=== PATIENT | female | born 1980 | race Two or more races ===

== ENCOUNTER 2023-05-30 18:00 | Emergency (ER) | payer OTHER ==
[~2023-05-30] VITALS: Ht 165.1 cm; Wt 72.1 kg
[2023-05-30 18:25] VITALS: BP 121/68; PULSE 75; RESP 18; O2SAT 98
[2023-05-30] MEDS ORDERED: KETOROLAC TROMETH 60MG/2ML VIAL IM ONE (22:15)
[2023-05-30] MEDS ORDERED: CYCL-837 PO (22:47)
[2023-05-30] MEDS ORDERED: IBUP-1456 PO (22:47)
== END 2023-05-30 23:39 | disposition home or self-care (01) ==
LOC: ER 18:00
DX: S30.0XXA Contusion of lower back and pelvis, initial encounter (principal); Z98.890 Other specified postprocedural states; Z79.899 Other long term (current) drug therapy; W07.XXXA Fall from chair, initial encounter; Y93.89 Activity, other specified; Y92.89 Other specified places as the place of occurrence of the external cause; Y99.8 Other external cause status
CPT/HCPCS: 72220; J1885

== ENCOUNTER 2023-08-16 12:19 | Emergency (ER) | payer OTHER ==
[~2023-08-16] VITALS: Ht 167.6 cm; Wt 71.9 kg
[~2023-08-16 12:19] MED LIST: CYCL-837 PO; DICY10CA PO; IBUP-1456 PO; NITR-87 PO; OMEP-335 PO; ZOFR4T PO
[2023-08-16] MEDS: IOHEXOL 300 MG/ML 100ML BOTTLE IJ ONE (13:53)
[2023-08-16 14:12] LABS: Urine Bacteria FEW /hpf (None Seen); Urine Blood Negative /uL (Negative); Urine Clarity HAZY (Clear); Urine Color Yellow (Yellow); Urine Mucus FEW (None Seen); Urine Protein, UAD TRACE (Negative); Urine Specific Gravity 1.025 (1.001-1.035); Urine Urobilinogen Normal (Negative); Urine WBC 8 /hpf (0 - 5)
[2023-08-16] MEDS ORDERED: HYDR-4902 PO (15:04)
[2023-08-16 17:15] VITALS: BP 154/82; PULSE 76; RESP 19; O2SAT 97
[2023-08-16] MEDS: HYDROcodone-ACET 10/325MG TAB PO ONE (17:15)
== END 2023-08-16 17:20 | disposition home or self-care (01) ==
LOC: ER 12:19
DX: R10.2 Pelvic and perineal pain (principal); Z85.41 Personal history of malignant neoplasm of cervix uteri; Z90.710 Acquired absence of both cervix and uterus; Z79.899 Other long term (current) drug therapy
CPT/HCPCS: 74177; 81001; 99285; Q9967

== ENCOUNTER 2023-08-31 09:40 | Emergency (ER) | payer OTHER ==
[~2023-08-31] VITALS: Ht 167.6 cm; Wt 70.0 kg
[~2023-08-31 09:40] MED LIST changes: +HYDR-4902 PO
[2023-08-31] MEDS: ASPirin 81 mg TAB PO ONE (10:11)
[2023-08-31 10:29] LABS: Basophils # (auto) 0 10 ^3/uL (0-0.2); Basophils % (auto) 0.2 % (0.0-2.0); Eosinophils # (auto) 0.1 10 ^3/uL (0-0.8); Eosinophils % (auto) 1.1 % (0.0-7.0); Hematocrit 43.6 % (36.0-46.0); Hemoglobin 14.7 g/dL (12.2-16.2); Lymphocytes # (auto) 2.2 10 ^3/uL (0.4-5.4); Lymphocytes % (auto) 37.2 % (10.0-50.0); Mean Corpuscular Hemoglobin 28.7 pg (28.0-32.0); Mean Corpuscular Hgb Conc. 33.8 g/dL (32.0-36.0); Monocytes # (auto) 0.5 10 ^3/uL (0-1.3); Monocytes % (auto) 7.9 % (0.0-12.0); Neutrophils # (auto) 3.2 10 ^3/uL (1.6-8.6); Neutrophils % (auto) 53.6 % (37.0-80.0); Nucleated Red Blood Cells % 0.2 %; Red Blood Cells 5.13 10^6/uL (4.0-5.20); Red Cell Distribution Width 13.5 % (11.8-14.3)
[2023-08-31 10:40] LABS: Alanine Aminotransferase 23 U/L (7-40); Albumin 4.7 g/dL (3.2-4.8); Alkaline Phosphatase 53 U/L (46-116); Anion Gap 7 (5-15); Aspartate Aminotransferase 13 U/L (13-40); BUN/Creatinine Ratio 22.2 (10.0-20.0); Blood Urea Nitrogen 14 mg/dL (9-23); Calcium 9.9 mg/dL (8.5-10.1); Carbon Dioxide 27 mmol/L (20-30); Chloride 104 mmol/L (98-107); Glucose 86 mg/dL (74-106); Potassium 3.5 mmol/L (3.5-5.1); Sodium 138 mmol/L (136-145)
[2023-08-31 10:41] LABS: Bilirubin, Total 0.5 mg/dL (0.2-1.0); Total Protein 6.9 g/dL (5.7-8.2)
[2023-08-31 12:02] VITALS: BP 143/89; PULSE 73; RESP 18; O2SAT 98
== END 2023-08-31 12:04 | disposition home or self-care (01) ==
LOC: ER 09:40
DX: R07.89 Other chest pain (principal); Z85.9 Personal history of malignant neoplasm, unspecified; Z90.710 Acquired absence of both cervix and uterus; Z87.891 Personal history of nicotine dependence; Z79.899 Other long term (current) drug therapy
CPT/HCPCS: 36415; 71045; 80053; 84484; 85025; 85379; 93005

== ENCOUNTER 2025-05-07 12:15 | Inpatient (IN) | payer SELFPAY ==
[~2025-05-07] VITALS: Ht 167.6 cm; Wt 70.0 kg
[2025-05-07 12:36] VITALS: PULSE 110; RESP 30; O2SAT 97
[2025-05-07] MEDS: SODIUM CHLORIDE 0.9% 1,000 ML IV ONE ×2 (13:08→14:15)
--- NOTE | 2025-05-07 13:16 | ED.PDOC ---
History of Present Illness HPI Comments 44-year-old female presents to the ER with prior medical history of cancer: Surgical history of hysterectomy and a chief complaint of shortness a breath. Patient reports on having had shortness a breath in the past two days and going to urgent care yesterday for which was diagnosed with bad pneumonia and told to come to the ER for antibiotics but went home instead. Patient currently does have a blood pressure of 209/114, satting at 97% room air with a respiratory rate of 40. Denies any other symptoms at this time. Denies chills, fever, N/V/D, CP. No other associated symptoms, modifiers, recent injuries or sick contacts present at this time. Chief Complaint: Shortness of Breath Time Seen by MD: 12:30 Primary Care Provider: UNKNOWN Reviewed Notes: Nurses Notes, Medications, Allergies Allergies: Coded Allergies: NO KNOWN ALLERGIES (Unverified , 05/30/23) Home Meds Active Scripts Hydrocodone-Acetaminophen (Hydrocodone Bitartrate/AC 5-325 mg) 1 Tab Tab, 1 TAB PO Q8HP PRN for 5 Days, #15 TAB Prov:GIO HERCULES MD 08/16/23 Ondansetron Odt 4MG Tab (ZOFRAN PO) 4 Mg Tb, 4 MG PO Q6HP PRN, #20 TAB ODT TAB-DISSOLVE IN MOUTH, THEN SWALLOW Prov:CECIL CASTELAN PAC 08/07/23 Dicyclomine Hcl (BENTYL CAPSULE) 10 Mg Cp, 1 CAP PO Q6HPRN, #30 CAP 0 Refills Prov:CECIL CASTELAN PAC 08/07/23 Nitrofurantoin Monohydrate Mac (Macrobid) 100 Mg Cap, 100 MG PO BID for 5 Days, #10 CAP Prov:CECIL CASTELAN PAC 08/07/23 Omeprazole (Omeprazole) 20 Mg Tab, 20 MG PO DAILY for 14 Days, #14 TAB Prov:CECIL CASTELAN PAC 08/07/23 Cyclobenzaprine Hcl (Cyclobenzaprine Hcl) 5 Mg Tab, 1 TAB PO QPM PRN, #14 TAB 0 Refills Prov:SALAS HAN 05/30/23 Ibuprofen (Ibuprofen) 800 Mg Tab, 1 TAB PO TID PRN, #30 TAB 0 Refills Prov:SALAS HAN 1/15/24 Information Source: Patient Mode of Arrival: Ambulatory Severity: Moderate Timing: Hours Duration: Since onset, Hours Prehospital treatment: None Past Medical History PAST MEDICAL HISTORY: Cancer Surgical History: Hysterectomy VISION THERAPIST History: No Pertinent VISION THERAPIST History Family History Family History: Reviewed,noncontributory to illness, Unknown Social History Smoker: Other Alcohol: Denies ETOH Use Drugs: Denies Drug Use Lives In: Home Constitutional: denies: chills, diaphoresis, fatigue, fever, malaise, sweats, weakness, others EENTM: denies: blurred vision, double vision, ear bleeding, ear discharge, ear drainage, ear pain, ear ringing, eye pain, eye redness, hearing loss, mouth pain, mouth swelling, nasal discharge, nose bleeding, nose congestion, nose pain, photophobia, tearing, throat pain, throat swelling, voice changes, others Respiratory: reports: shortness of breath; denies: cough, hemoptysis, orthopnea, SOB at rest, SOB with excertion, stridor, wheezing, others Cardiovascular: denies: chest pain, dizzy spells, diaphoresis, Dyspnea on exertion, edema, irregular heart beat, left arm pain, lightheadedness, palpitations, PND, syncope, others Gastrointestinal: denies: abdomen distended, abdominal pain, blood streaked bowels, constipated, diarrhea, dysphagia, difficulty swallowing, hematemesis, melena, nausea, poor appetite, poor fluid intake, rectal bleeding, rectal pain, vomiting, others Genitourinary: denies: abnormal vagina bleeding, burning, dyspareunia, dysuria, flank pain, frequency, hematuria, incontinence, pain, , vagina discharge, urgency, others Neurological: denies: dizziness, fainting, headache, left sided numbness, left sided weakness, numbness, paresthesia, pre-existing deficit, right sided numbne ss, right sided weakness, seizure, speech problems, tingling, tremors, weakness, others Musculoskeletal: denies: back pain, gout, joint pain, joint swelling, muscle pain, muscle stiffness, neck pain, others Integumetry: denies: bruises, change in color, change in hair/nails, dryness, laceration, lesions, lumps, rash, wounds, others Allergic/Immunocompromised: denies: Difficulty Healing, Frequent Infections, Hives, Itching, others Hematologic/Lymphatic: denies: anemia, blood clots, easy bleeding, easy bruising, swollen glands, others Endocrine: denies: excessive hunger, excessive sweating, excessive thirst, excessive urination, flushing, intolerance to cold, intolerance to heat, unexplained weight gain, unexplained weight loss, others Psychiatric: denies: anxiety, bipolar disorder, depression, hopeless, panic disorder, schizophrenia, sleepless, suicidal, others All Other Systems: Reviewed and Negative Physical Exam General Appearance: Moderate Distress, Normal HEENT: Normal ENT Inspection, Pharynx Normal, TMs Normal Neck: Full Range of Motion, Non-Tender, Normal, Normal Inspection Respiratory: Accessory Muscle Use, Chest Non-Tender, Respiratory Distress, Wheezing Cardiovascular: No Edema, No JVD, No Murmur, No Gallop, Normal Peripheral Pulse s, Tachycardia Breast Exam: Deferred Gastrointestinal: No Organomegaly, Non Tender, No Pulsatile Mass, Normal Bowel Sounds, Soft Genitalia: Deferred Pelvic: Deferred Rectal: Deferred Extremities: No calf tenderness, Normal capillary refill, Normal inspection, Normal range of motion, Non-tender, No pedal edema Musculoskeletal : Apperance: Normal Neurologic: Alert, gas appliance adjuster II-XII nml as Tested, No Motor Deficits, Normal Affect, Normal Mood, No Sensory Deficits Cerebellar Function: NOT DONE Reflexes: NOT DONE Skin: Dry, Normal Color, Warm Peripheral Pulses: 3+ Radial (R), 3+ Radial (L) Lymphatic: No Adenopathy Was a procedure done? Was a procedure done?: No Differential Dx Considerations may include: Anemia Electrolyte imbalance X-Ray, Labs, Meds, VS Vital Signs Date Time Temp Pulse Resp B/P (MAP) Pulse Ox O2 Delivery O2 Flow Rate FiO2 05/07/25 14:59 90 24 164/90 (114) 99 05/07/25 14:27 95 Simple Mask* 10 99 05/07/25 14:22 98.6 105 22 168/79 (108) 95 98.6 05/07/25 13:52 108 28 186/78 (114) 98 05/07/25 13:50 97.6 110 30 209/114 (145) 97 97.6 05/07/25 12:36 110 30 97 Room Air* 0 21 05/07/25 12:20 98.7 117 36 174/105 95 98.7 Lab Test 05/07/25 15:12 05/07/25 14:02 05/07/25 13:00 05/07/25 12:15 Range/Units Lactic Acid Level Pending 2.8 *H 0.4-2.0 mmol/L Lactate Dehydrogenase Pending Sodium Level 139 136-145 mmol/L Potassium Level 3.6 3.5-5.1 mmol/L Chloride Level 106 98-107 mmol/L Carbon Dioxide Level 26 20-31 mmol/L Anion Gap 7 5-15 Blood Urea Nitrogen 6 L 9-23 mg/dL Creatinine 0.58 0.550-1.02 mg/dL Glomerular Filtration Rate Calc 116 >90 mL/min BUN/Creatinine Ratio 10.3 10.0-20.0 Serum Glucose 103 74-106 mg/dL Calcium Level 8.3 L 8.7-10.4 mg/dL White Blood Count 9.3 4.4-10.8 10^3/uL Red Blood Count 4.80 4.0-5.20 10^6/uL Hemoglobin 15.0 12.2-16.2 g/dL Hematocrit 42.6 36.0-46.0 % Mean Corpuscular Volume 88.7 80.0-100.0 fL Mean Corpuscular Hemoglobin 31.3 28.0-32.0 pg Mean Corpuscular Hemoglobin Concent 35.3 32.0-36.0 g/dL Red Cell Distribution Width 12.5 11.8-14.3 % Platelet Count 257 140-450 10^3/uL Mean Platelet Volume 7.8 6.9-10.8 fL Neutrophils (%) (Auto) 81.8 H 37.0-80.0 % Lymphocytes (%) (Auto) 9.6 L 10.0-50.0 % Monocytes (%) (Auto) 7.8 0.0-12.0 % Eosinophils (%) (Auto) 0.7 0.0-7.0 % Basophils (%) (Auto) 0.1 0.0-2.0 % Neutrophils # (Auto) 7.6 1.6-8.6 10 ^3/uL Lymphocytes # (Auto) 0.9 0.4-5.4 10 ^3/uL Monocytes # (Auto) 0.7 0-1.3 10 ^3/uL Eosinophils # (Auto) 0.1 0-0.8 10 ^3/uL Basophils # (Auto) 0 0-0.2 10 ^3/uL Nucleated Red Blood Cells 0.0 % Urine Color Yellow Yellow Urine Clarity Clear Clear Urine pH 6.5 5.0-9.0 Urine Specific [place] 1.028 1.001-1.035 Urine Protein 1+ H Negative Urine Ketones Trace Negative Urine Blood Trace H Negative /uL Urine Nitrite Negative Negative Urine Bilirubin Negative Negative Urine Urobilinogen 3 H Negative mg/dL Urine Leukocyte Esterase 2+ Negative /uL Urine RBC 6 0 - 4 /hpf Urine Microscopic WBC 3 0-5 /HPF Urine Squamous Epithelial Cells Mod <5 /hpf Urine Bacteria Few H None Seen /hpf Urine Mucus Few None Seen Urine Glucose Normal Normal mg/dL Current Medications Medications (Trade) Dose Ordered Sig/Norris Route Start Time Stop Time Status Last Admin Sodium Chloride 1,000 ml @ 1,000 mls/hr Q1H ONCE IV 05/07/25 13:00 05/07/25 13:59 DC 05/07/25 13:08 Sodium Chloride 1,000 ml @ 150 mls/hr Q6H40M ONCE IV 05/07/25 13:00 05/07/25 19:39 05/07/25 14:15 Ceftriaxone Sodium 50 ml @ 100 mls/hr ONCE ONCE IV 05/07/25 13:30 05/07/25 13:59 DC 05/07/25 13:36 Azithromycin 250 ml @ 125 mls/hr ONCE ONCE IV 05/07/25 13:30 05/07/25 15:29 05/07/25 13:57 Patient alert. Complaining of shortness a breath. Placed on oxygen. Answering questions. Was given breathing treatment. Was given steroid. Was given Rocephin. Was given azithromycin. Shows UTI. Explained to the patient. Continue monitoring. Time of 1ST Reevaluation: 12:58 Reevaluation 1ST: Unchanged Patient Education/Counseling: Diagnosis, Treatment, Prognosis Family Education/Counseling: No Family Present SEPSIS Sepsis Screen Date sepsis recognized/suspect: May 07, 2025 Time Sepsis recognized/suspect: 1220 Recent Procedure: No On Antibiotic Therapy: No Respiratory Rate >20: No Heart Rate >90: No Temp<36 C (96.8 F) or >38.3 C: No SBP <90 or MAP <65 mmHG: No New Acute Mental Status Change: No Is the patient on CPAP, BIPAP,: No Physician Orders Chest Portable (05/07/25 12:54) Sodium Chloride 0.9% (05/07/25 13:00) Corporate Communications Specialist (05/07/25 13:04) Pulse Oximetry (05/07/25 13:04) Blood Culture (05/07/25 13:04) Urine (05/07/25 13:04) Heplock Iv (05/07/25 13:04) Oxygen (05/07/25 ) Sepsis Initial Assessment ONCE (05/07/25 13:04) Sepsis Reassessment After Flui (05/07/25 13:04) Azithromycin 500mg/250ml (Zithromax 500m (05/07/25 13:30) Lactate Dehydrogenase (05/07/25 15:04) Vital Signs Date Time Temp Pulse Resp B/P (MAP) Pulse Ox O2 Delivery O2 Flow Rate FiO2 05/07/25 14:59 90 24 164/90 (114) 99 05/07/25 14:27 95 Simple Mask* 10 99 05/07/25 14:22 98.6 105 22 168/79 (108) 95 98.6 05/07/25 13:52 108 28 186/78 (114) 98 05/07/25 13:50 97.6 110 30 209/114 (145) 97 97.6 05/07/25 12:36 110 30 97 Room Air* 0 21 05/07/25 12:20 98.7 117 36 174/105 95 98.7 Laboratory Tests Test 05/07/25 13:00 05/07/25 15:12 Lactic Acid Level 2.8 mmol/L (0.4-2.0) *H Pending White Blood Count 9.3 10^3/uL (4.4-10.8) Medications Medications Dose Ordered Sig/Norris Route Start Time Stop Time Status Last Admin Dose Admin Azithromycin 250 ml @ 125 mls/hr ONCE ONCE IV 05/07/25 13:30 05/07/25 15:29 05/07/25 13:57 Ceftriaxone Sodium 50 ml @ 100 mls/hr ONCE ONCE IV 05/07/25 13:30 05/07/25 13:59 DC 05/07/25 13:36 Sodium Chloride 1,000 ml @ 150 mls/hr Q6H40M ONCE IV 05/07/25 13:00 05/07/25 19:39 05/07/25 14:15 Sodium Chloride 1,000 ml @ 1,000 mls/hr Q1H ONCE IV 05/07/25 13:00 05/07/25 13:59 DC 05/07/25 13:08 Departure 1 Departure Time of Disposition: 15:14 Impression: Primary Impression: Sepsis, unspecified organism Qualified Codes: A41.9 - Sepsis, unspecified organism Additional Impression: Pneumonia Qualified Codes: J18.9 - Pneumonia, unspecified organism Disposition: ADMITTED INPATIENT Admit to: Med Surg Condition: Guarded Critical Care Note Critical Care Time?: No Stability Stability form required: No I personally scribed for MAURO QUEZADA MD ([email or web address]) on 05/07/25 at 13:16. Electronically submitted by Christophe Marion ([email or web address]). MAURO QUEZADA MD May 07, 2025 13:16
[2025-05-07 13:24] LABS: Urine Protein, UAD 1+ (Negative)
--- NOTE | 2025-05-07 13:29 | DVH ---
CHEST RADIOGRAPH INDICATION: sob TECHNIQUE: Single frontal view of the chest was obtained COMPARISON: XY CHEST PORTABLE on DOS: 08/31/23 FINDINGS: Lines and Tubes: None Lungs: Right lower lobe airspace disease. Pleura: No effusion. No pneumothorax. Cardiomediastinal contours: Unremarkable Bones: Unremarkable IMPRESSION: Right lower lobe pneumonias
[2025-05-07 13:49] LABS: Hematocrit 42.6 % (36.0-46.0); Hemoglobin 15.0 g/dL (12.2-16.2); Mean Corpuscular Hemoglobin 31.3 pg (28.0-32.0); Mean Corpuscular Volume 88.7 fL (80.0-100.0); Nucleated Red Blood Cells % 0.0 %
[2025-05-07] MEDS: AZITHROMYCIN 500MG/250ML 250 ML IV ONE (13:57)
[2025-05-07 14:07] LABS: Lactic Acid w/Reflex 2.8 mmol/L (0.4-2.0)
[2025-05-07 14:21] LABS: Chloride 106 mmol/L (98-107); Potassium 3.6 mmol/L (3.5-5.1); Sodium 139 mmol/L (136-145)
[2025-05-07 14:22] LABS: Anion Gap 7 (5-15); Calcium 8.3 mg/dL (8.7-10.4); Carbon Dioxide 26 mmol/L (20-31)
[2025-05-07 14:27] LABS: BUN/Creatinine Ratio 10.3 (10.0-20.0); Blood Urea Nitrogen 6 mg/dL (9-23); Glucose 103 mg/dL (74-106)
[2025-05-07 20:00] VITALS: PULSE 82; RESP 17; O2SAT 96
[2025-05-08] VITALS (7 sets, daily range): BP systolic 151–179; BP diastolic 81–111; PULSE 75–87; RESP 16–18; TEMP 97.8–98.7; O2SAT 95–98
[2025-05-08] MEDS ORDERED: ONDANSETRON HCL 4 MG/2 ML VIAL IV PRN (02:15)
[2025-05-08] MEDS ORDERED: DOCUSATE SOD 100 MG CAP PO PRN (02:15)
[2025-05-08] MEDS ORDERED: SODIUM CHLORIDE 0.9% 500 ML IV ONE (02:30)
[2025-05-08] MEDS ORDERED: AZITHROMYCIN 250 MG TAB PO ONE (02:30)
[2025-05-08] MEDS: POLYETHYLENE GLYCOL 17 GM PWDR PO ONE (02:46)
--- NOTE | 2025-05-08 03:31 | DVHHPRES ---
History of Present Illness Resident Creating Document: DEMARIO GALINDO RESIDENT History of Present Illness Patient is a 44-year-old female with past medical history of ovarian cancer who came to the ED with chief complaints of shortness of breath, cough associated with green colored sputum since 5 days. Patient states that her shortness of breath has progressively increased since the past 2 days and has gone to the urgent care yesterday. Patient states that at urgent care they said to go to the ER. PMHx: Ovarian cancer PSHx: hysterectomy Family history: reviewed, noncontributor Social history: nicotine vape every day, occasionally drinks, drug use, lives with family Patient seen at bedside. Patient is of nasal cannula and on room ir. Patient states she has mild Shortness of breath, chest pain due to coughing, complained of abdominal distention and constipation states that she had not had a bowel movement since 5 days. Review of Systems Constitutional: Yes: Fever, Chills Eyes: No: Pain, Vision change, Conjunctivae inflammation, Eyelid inflammation, Other, Redness ENT: Ear pain, Ear discharge, Nose pain, Nose discharge, Nose congestion, Mouth pain, Mouth swelling, Throat pain, Throat swelling, Other Respiratory: Cough, Shortness of breath, Pleuritic Pain, Sputum; No: Dry, SOB with excertion, Wheezing, Hemoptysis, Wheezing, Other Cardiovascular: Chest Pain; No: Palpitations, Orthopnea, Paroxysmal Noc. Dyspnea, Edema, Lt Headedness, Other Gastrointestinal: Vomiting; No: Nausea, Abdominal Pain, Diarrhea, Constipation, Melena, Hematochezia, Other Genitourinary: No Dysuria, No Frequency, No Incontinence, No Hematuria, No Retention, No Other Musculoskeletal: No: other, neck pain, shoulder pain, arm pain, back pain, hand pain, leg pain, foot pain Skin: No: Rash, Lesions, Jaundice, Bruising, Other Neurological: No: Weakness, Numbness, Incoordination, Change in speech, Confusion, Seizures, Other Allergies: Coded Allergies: NO KNOWN ALLERGIES (Unverified , 05/30/23) Medications Current Medications Medications Dose Ordered Sig/Norris Route Start Time Stop Time Status Last Admin Dose Admin Ondansetron HCl 4 mg Q4HP PRN IV 05/08/25 02:15 Docusate Sodium 100 mg BIDPRN PRN PO 05/08/25 02:15 Acetaminophen 650 mg Q6HP PO 05/08/25 06:00 Ceftriaxone Sodium 50 ml @ 100 mls/hr DAILY@09 IV 05/08/25 09:00 Azithromycin 500 mg DAILY PO 05/08/25 10:00 Exam Vital Signs Vital Signs Date Time Temp Pulse Resp B/P (MAP) Pulse Ox O2 Delivery O2 Flow Rate FiO2 05/08/25 02:22 98.7 87 17 174/99 (124) 95 98.7 05/07/25 20:00 Nasal Cannula* 2 28 Exam General: Patient alert and oriented in person, place and time. Patient following commands. HEENT: Normocephalic, atraumatic, moist mucous membranes Respiratory/pulmonary: bilateral wheezing present Cardiovascular: Normal heart sounds S1 and S2 with no associated murmurs Abdomen: Abdomen nondistended, there is no pain to palpation in any of the abdominal quadrants, no palpable masses. Extremities: There is no peripheral edema present at the lower extremities. Peripheral Pulses: 3+ Radial (R). 3+ Radial (L). 3+ Dorsalis pedis (R). 3+ Dorsalis pedis(L) Skin: No rashes or pruritus, there is no sacral edema present at this time. Neurological: Intact cranial nerves with no focal neurologic deficits Labs/Xrays Labs Test 05/07/25 15:12 05/07/25 14:02 05/07/25 13:00 05/07/25 12:15 Range/Units Lactic Acid Level 1.1 0.4-2.0 mmol/L Lactate Dehydrogenase 155 120-246 U/L Sodium Level 139 136-145 mmol/L Potassium Level 3.6 3.5-5.1 mmol/L Chloride Level 106 98-107 mmol/L Carbon Dioxide Level 26 20-31 mmol/L Anion Gap 7 5-15 Blood Urea Nitrogen 6 L 9-23 mg/dL Creatinine 0.58 0.550-1.02 mg/dL Glomerular Filtration Rate Calc 116 >90 mL/min BUN/Creatinine Ratio 10.3 10.0-20.0 Serum Glucose 103 74-106 mg/dL Calcium Level 8.3 L 8.7-10.4 mg/dL White Blood Count 9.3 4.4-10.8 10^3/uL Red Blood Count 4.80 4.0-5.20 10^6/uL Hemoglobin 15.0 12.2-16.2 g/dL Hematocrit 42.6 36.0-46.0 % Mean Corpuscular Volume 88.7 80.0-100.0 fL Mean Corpuscular Hemoglobin 31.3 28.0-32.0 pg Mean Corpuscular Hemoglobin Concent 35.3 32.0-36.0 g/dL Red Cell Distribution Width 12.5 11.8-14.3 % Platelet Count 257 140-450 10^3/uL Mean Platelet Volume 7.8 6.9-10.8 fL Neutrophils (%) (Auto) 81.8 H 37.0-80.0 % Lymphocytes (%) (Auto) 9.6 L 10.0-50.0 % Monocytes (%) (Auto) 7.8 0.0-12.0 % Eosinophils (%) (Auto) 0.7 0.0-7.0 % Basophils (%) (Auto) 0.1 0.0-2.0 % Neutrophils # (Auto) 7.6 1.6-8.6 10 ^3/uL Lymphocytes # (Auto) 0.9 0.4-5.4 10 ^3/uL Monocytes # (Auto) 0.7 0-1.3 10 ^3/uL Eosinophils # (Auto) 0.1 0-0.8 10 ^3/uL Basophils # (Auto) 0 0-0.2 10 ^3/uL Nucleated Red Blood Cells 0.0 % Urine Color Yellow Yellow Urine Clarity Clear Clear Urine pH 6.5 5.0-9.0 Urine Specific [place] 1.028 1.001-1.035 Urine Protein 1+ H Negative Urine Ketones Trace Negative Urine Blood Trace H Negative /uL Urine Nitrite Negative Negative Urine Bilirubin Negative Negative Urine Urobilinogen 3 H Negative mg/dL Urine Leukocyte Esterase 2+ Negative /uL Urine RBC 6 0 - 4 /hpf Urine Microscopic WBC 3 0-5 /HPF Urine Squamous Epithelial Cells Mod <5 /hpf Urine Bacteria Few H None Seen /hpf Urine Mucus Few None Seen Urine Glucose Normal Normal mg/dL SEPSIS Sepsis Screen Date sepsis recognized/suspect: May 07, 2025 Time Sepsis recognized/suspect: 1949 Recent Procedure: No On Antibiotic Therapy: No Respiratory Rate >20: No Heart Rate >90: No Temp<36 C (96.8 F) or >38.3 C: No SBP <90 or MAP <65 mmHG: Yes New Acute Mental Status Change: No Is the patient on CPAP, BIPAP,: No Physician Orders Admit (05/08/25 02:14) Code Status (05/08/25 02:14) Ondansetron Hcl (Zofran) (05/08/25 02:15) Docusate Sodium Capsule (Colace Capsule) (05/08/25 02:15) Condition: Serious (05/08/25 02:14) Acetaminophen Tablet (Tylenol Tablet) (05/08/25 06:00) Bedrest With Bathroom Privileg (05/08/25 02:14) Oxygen By Nasal Cannula (05/08/25 02:14) Stat Ekg For Chest Pain (05/08/25 02:14) Notify Md Of Changes From Base (05/08/25 02:14) Insurance Claims Adjuster For 24 Hours (05/08/25 02:14) Emergency Dysrhythmia Protocol (05/08/25 02:14) Rhythm Strips Once Every Shift (05/08/25 02:14) Complete Blood Count (05/08/25 04:00) Comprehensive Metabolic Panel (05/08/25 04:00) Respiratory Culture W/ Gs (05/08/25 02:17) Covid19 Antigen Karlee (05/08/25 ) Rapid Influenza A&B (05/08/25 02:17) Mrsa Screen (05/08/25 02:17) Ceftriaxone 1gm/50ml (Rocephin) (05/08/25 09:00) Azithromycin Tablet (Zithromax Tablet) (05/08/25 10:00) Sodium Chloride 0.9% (05/08/25 02:30) Albuterol Medneb (Ventolin Medneb) (05/08/25 06:00) Ipratropium Medneb (Atrovent Medneb) (05/08/25 06:00) Vital Signs Date Time Temp Pulse Resp B/P (MAP) Pulse Ox O2 Delivery O2 Flow Rate FiO2 05/08/25 02:22 98.7 87 17 174/99 (124) 95 98.7 05/08/25 00:12 85 19 149/79 (102) 99 05/07/25 22:10 84 22 153/81 (105) 99 05/07/25 20:00 82 17 96 Nasal Cannula* 2 28 Medications Medications Dose Ordered Sig/Norris Route Start Time Stop Time Status Last Admin Dose Admin Polyethylene Glycol 17 gm ONCE ONCE PO 05/08/25 02:45 05/08/25 02:46 DC 05/08/25 02:46 17 GM Assessment/Plan Assessment/Plan Sepsis due to pneumonia Acute hypoxic respiratory failure due to pneumonia Pneumonia due to Gram-positive / Gram-negative bacteria oxygen Fluids Ceftriaxone, azithromycin albuterol, ipratropium med nebs check sputum culture Check blood culture MRSA Slow transit constipation Colace MiraLax History of ovarian cancer Goals of care addressed with the patient for more than 27 minutes: Full code status Case discussed with Dr. Sesay, patient and nurse Plan discussed with: Patient My Orders Orders - DEMARIO GALINDO RESIDENT Procedure Category Date Status Time Admit ADMIT 05/08/25 Transmitted 02:14 Code Status CODE 05/08/25 Transmitted 02:14 Ondansetron Hcl PHA 05/08/25 In Process (Zofran) 02:15 Docusate Sodium PHA 05/08/25 In Process Capsule (Colace 02:15 Condition: Serious YOLY 05/08/25 In Process 02:14 Acetaminophen Tablet PHA 05/08/25 In Process (Tylenol Tablet) 06:00 Bedrest With Bathroom YOLY 05/08/25 In Process Privileg 02:14 Oxygen By Nasal RT 05/08/25 Transmitted Cannula 02:14 Stat Ekg For Chest YOLY 05/08/25 In Process Pain 02:14 Notify Md Of Changes YOLY 05/08/25 In Process From Base 02:14 Insurance Claims Adjuster For YOLY 05/08/25 In Process 24 Hours 02:14 Emergency Dysrhythmia YOLY 05/08/25 In Process Protocol 02:14 Rhythm Strips Once YOLY 05/08/25 In Process Every Shift 02:14 Complete Blood Count LAB 05/08/25 Logged 04:00 Comprehensive LAB 05/08/25 Logged Metabolic Panel 04:00 Respiratory Culture LUPE 05/08/25 Logged W/ Gs 02:17 Covid19 Antigen Karlee LAB 05/08/25 Logged Rapid Influenza A&B LAB 05/08/25 Logged 02:17 Mrsa Screen LUPE 05/08/25 Logged 02:17 Ceftriaxone 1gm/50ml PHA 05/08/25 In Process (Rocephin) 09:00 Azithromycin Tablet PHA 05/08/25 In Process (Zithromax Tablet) 10:00 Sodium Chloride 0.9% PHA 05/08/25 In Process 02:30 Albuterol Medneb PHA 05/08/25 In Process (Ventolin Medneb) 06:00 Ipratropium Medneb PHA 05/08/25 In Process (Atrovent Medneb) 06:00 Visit Coding STANDARD RES Billing Provider: RON SESAY MD Date of Service if different f: May 08, 2025 Common Visit Codes: [id number] INP/OBS CARE (HIGH) Secondary Visit Codes: [id number] CARE PLAN 30 MINUTES DEMARIO GALINDO RESIDENT May 08, 2025 03:31
[2025-05-08 04:53] LABS: COVID19 ANTIGEN SOFIA FIA NEGATIVE (NEGATIVE)
[2025-05-08] MEDS: ACETAMINOPHEN 325 MG TAB PO SCH (05:35)
[2025-05-08] MEDS: LISINOPRIL 5 MG TAB PO ONE (05:36)
[2025-05-08] MEDS: ALBUTEROL SULF 2.5 MG/0.5ML(0.5%) NEB SOLN NEB SCH (07:08)
[2025-05-08] MEDS: IPRATROPIUM BROM 0.5 MG/2.5ML INH SOL NEB SCH (07:08)
[2025-05-08 07:55] LABS: Hematocrit 39.2 % (36.0-46.0); Hemoglobin 13.3 g/dL (12.2-16.2); Mean Corpuscular Hemoglobin 30.6 pg (28.0-32.0); Mean Corpuscular Volume 90.5 fL (80.0-100.0); Nucleated Red Blood Cells % 0.0 %
[2025-05-08 08:09] LABS: Alanine Aminotransferase 14 U/L (7-40); Albumin 4.2 g/dL (3.2-4.8); Alkaline Phosphatase 63 U/L (46-116); Anion Gap 10 (5-15); BUN/Creatinine Ratio 9.4 (10.0-20.0); Calcium 9.2 mg/dL (8.7-10.4); Carbon Dioxide 23 mmol/L (20-31); Potassium 3.6 mmol/L (3.5-5.1); Sodium 141 mmol/L (136-145); Total Protein 6.7 g/dL (5.7-8.2)
[2025-05-08 08:10] LABS: Bilirubin, Total 0.3 mg/dL (0.2-1.0)
[2025-05-08 08:14] LABS: Blood Urea Nitrogen 5 mg/dL (9-23); Chloride 108 mmol/L (98-107); Glucose 110 mg/dL (74-106)
[2025-05-08] MEDS: AZITHROMYCIN 250 MG TAB PO SCH (09:47)
[2025-05-08] MEDS ORDERED: LISINOPRIL 5 MG TAB PO SCH (10:00)
--- NOTE | 2025-05-08 19:44 | DVHPNRES ---
Progress Note Date Seen: May 08, 2025 Resident Creating Document: GRADY BURGESS RESIDENT Medical Necessity Reason Pt with a Central, PICC or Fol: No Subjective Review of Systems The patient was seen and examined at bedside today. She reports improvement in her symptoms, she was on room air. No new complaints reported Objective vital signs Vital Sign Date Time Temp Pulse Resp B/P (MAP) Pulse Ox O2 Delivery O2 Flow Rate FiO2 05/08/25 13:00 78 151/86 (107) 05/08/25 09:30 96 Room Air 0.0 05/08/25 09:30 21 05/08/25 08:00 97.8 16 97.8 Total Intake and Output 05/07/25 05/07/25 05/08/25 14:59 22:59 06:59 Intake Total 1050 ml 700 ml Balance 1050 ml 700 ml medications Current Medications Medications Dose Ordered Sig/Norris Route Start Time Stop Time Status Last Admin Dose Admin Ondansetron HCl 4 mg Q4HP PRN IV 05/08/25 02:15 Docusate Sodium 100 mg BIDPRN PRN PO 05/08/25 02:15 Acetaminophen 650 mg Q6HP PO 05/08/25 06:00 05/08/25 12:49 650 MG Ceftriaxone Sodium 50 ml @ 100 mls/hr DAILY@09 IV 05/08/25 09:00 05/08/25 09:46 100 MLS/HR Azithromycin 500 mg DAILY PO 05/08/25 10:00 05/08/25 09:47 500 MG Albuterol 2.5 mg Q4HWA [facility] 05/08/25 06:00 05/08/25 07:08 2.5 MG Ipratropium [place] 0.5 mg Q4HWA [facility] 05/08/25 06:00 05/08/25 07:08 0.5 MG Lisinopril 20 mg DAILY PO 05/09/25 10:00 Examination Pt is lying on bed General Appearance: Alert, Oriented X3, Cooperative, Mild distress HEENT: Atraumatic, Mucous membranes moist/pink Respiratory: Crackles bilaterally, Normal air movement, No added sounds Cardiovascular: Regular rate, Normal S1, Normal S2, No murmurs Abdominal/ : Active bowel sounds, Soft, no distention, no tenderness Extremities: No edema, Normal pulses, No tenderness/swelling Skin: No Significant rash, except past surgical scars Neuro: Normal speech, sensorimotor deficits none Psych/Mental Status: Mental status NL, Mood NL Nurse was there as envelope stamping machine operator during examination laboratory and microbiology Laboratory Tests 05/08/25 07:46 Test 05/08/25 07:46 Range/Units Serum Glucose 110 H 74-106 mg/dL Microbiology Date/Time Source Procedure Growth Status 05/07/25 13:11 Blood Blood Culture - Preliminary NO GROWTH AFTER 24 HOURS OF INCUBATION. Resulted Labs and/or images reviewed: Labs reviewed by me, Image(s) reviewed by me Problem List/Assessment/Plan Problem List/Assessment/Plan Sepsis due to pneumonia Acute hypoxic respiratory failure due to pneumonia Pneumonia due to Gram-positive / Gram-negative bacteria Nasal Cannula oxygen if necessary IV Fluids Ceftriaxone, azithromycin Albuterol, ipratropium med nebs Sputum culture pending blood culture reveals no growth after 24 hours MRSA pending Slow transit constipation Colace MiraLax History of ovarian cancer GI prophylaxis: Pantoprazole DVT prophylaxis: SCDs Diet: Regular Goals of care discussed with the patient for more than 27 minutes: Full code status Case discussed with , patient and RN Goals of care addressed with the patient for more than 27 minutes: Full code status Plan discussed with: Patient, Other (RN) My Orders My Orders Orders - GRADY BURGESS Procedure Category Date Status Time Urine Bacterial LUPE 05/08/25 Uncollected Culture 17:03 Visit Coding STANDARD RES Billing Provider: COSMO GARCIA MD Date of Service if different f: May 08, 2025 Common Visit Codes: 93299-[id number] INP/OBS CARE(HIGH) GRADY BURGESS RESIDENT May 08, 2025 19:44
[2025-05-09] MEDS ORDERED: LISINOPRIL 5 MG TAB PO SCH ×3 (10:00)
--- NOTE | 2025-05-09 20:24 | DVHDSRES ---
Discharge Summary Date of Admission Resident Creating Document: GRADY BURGESS May 08, 2025 at 02:14 Date of Discharge: May 08, 2025 Admitting Diagnosis Acute hypoxic respiratory failure Labs/Diagnostic Data: Laboratory Results Test 05/08/25 07:46 05/08/25 03:57 05/07/25 15:12 05/07/25 12:15 White Blood Count 9.1 10^3/uL (4.4-10.8) Red Blood Count 4.33 10^6/uL (4.0-5.20) Hemoglobin 13.3 g/dL (12.2-16.2) Hematocrit 39.2 % (36.0-46.0) Mean Corpuscular Volume 90.5 fL (80.0-100.0) Mean Corpuscular Hemoglobin 30.6 pg (28.0-32.0) Mean Corpuscular Hemoglobin Concent 33.8 g/dL (32.0-36.0) Red Cell Distribution Width 12.5 % (11.8-14.3) Platelet Count 244 10^3/uL (140-450) Mean Platelet Volume 7.0 fL (6.9-10.8) Neutrophils (%) (Auto) 77.0 % (37.0-80.0) Lymphocytes (%) (Auto) 13.5 % (10.0-50.0) Monocytes (%) (Auto) 7.9 % (0.0-12.0) Eosinophils (%) (Auto) 1.5 % (0.0-7.0) Basophils (%) (Auto) 0.1 % (0.0-2.0) Neutrophils # (Auto) 7.0 10 ^3/uL (1.6-8.6) Lymphocytes # (Auto) 1.2 10 ^3/uL (0.4-5.4) Monocytes # (Auto) 0.7 10 ^3/uL (0-1.3) Eosinophils # (Auto) 0.1 10 ^3/uL (0-0.8) Basophils # (Auto) 0 10 ^3/uL (0-0.2) Nucleated Red Blood Cells 0.0 % Sodium Level 141 mmol/L (136-145) Potassium Level 3.6 mmol/L (3.5-5.1) Chloride Level 108 mmol/L (98-107) Carbon Dioxide Level 23 mmol/L (20-31) Anion Gap 10 (5-15) Blood Urea Nitrogen 5 mg/dL (9-23) Creatinine 0.53 mg/dL (0.550-1.02) Glomerular Filtration Rate Calc 118 mL/min (>90) BUN/Creatinine Ratio 9.4 (10.0-20.0) Serum Glucose 110 mg/dL (74-106) Calcium Level 9.2 mg/dL (8.7-10.4) Total Bilirubin 0.3 mg/dL (0.2-1.0) Aspartate Amino Transferase (AST) 17 U/L (13-40) Alanine Aminotransferase (ALT) 14 U/L (7-40) Alkaline Phosphatase 63 U/L (46-116) Total Protein 6.7 g/dL (5.7-8.2) Albumin 4.2 g/dL (3.2-4.8) Influenza Type A Antigen Negative (Negative) Influenza Type B Antigen Negative (Negative) SARS-CoV-2 Antigen (Rapid) Negative (NEGATIVE) Lactic Acid Level 1.1 mmol/L (0.4-2.0) Lactate Dehydrogenase 155 U/L (120-246) Urine Color Yellow (Yellow) Urine Clarity Clear (Clear) Urine pH 6.5 (5.0-9.0) Urine Specific [place] 1.028 (1.001-1.035) Urine Protein 1+ (Negative) Urine Ketones Trace (Negative) Urine Blood Trace /uL (Negative) Urine Nitrite Negative (Negative) Urine Bilirubin Negative (Negative) Urine Urobilinogen 3 mg/dL (Negative) Urine Leukocyte Esterase 2+ /uL (Negative) Urine RBC 6 /hpf (0 - 4) Urine Microscopic WBC 3 /HPF (0-5) Urine Squamous Epithelial Cells Mod /hpf (<5) Urine Bacteria Few /hpf (None Seen) Urine Mucus Few (None Seen) Urine Glucose Normal mg/dL (Normal) Other Laboratory Tests 05/08/25 07:46 Brief Hx & Hospital Course: Patient is a 44-year-old female with past medical history of ovarian cancer who came to the ED with chief complaints of shortness of breath, cough associated with green colored sputum since 5 days. Patient states that her shortness of breath has progressively increased since the past 2 days and has gone to the urgent care yesterday. Patient states that at urgent care they said to go to the ER. PMHx: Ovarian cancer PSHx: hysterectomy Family history: reviewed, noncontributor Social history: nicotine vape every day, occasionally drinks, drug use, lives with family Brief hospital course: Patient was being treated for community-acquired pneumonia with IV antibiotics. Was receiving breathing treatments. However, before completing the treatment patient left the hospital against medical advice. She was explained the importance of continuing treatment and consequences of not doing so, she verbalized understanding and chose to leave against medical advice Condition at Discharge: Stable Final Diagnosis/Problems List Sepsis due to pneumonia Acute hypoxic respiratory failure due to pneumonia Pneumonia due to Gram-positive / Gram-negative bacteria Slow transit constipation History of ovarian cancer Discharge Disposition: Home Discharge Instruct/Medications Diet: Cardiac 2g Na,low cholest Activity: No Restrictions, As Tolerated Follow Up/Referral: Follow up outpatient with PCP and DC clinic Medications: as per EMR No Active Prescriptions or Reported Meds Discharge Statement: "Patient was advised to return to the ER or call 911 if any headaches, dizziness, shortness of breath, chest pain, abdominal pain, bleeding, fevers, or worsening of medical condition. Patient was counseled about treatment plan, medications, possible side effects, patientverbalized understanding. All questions were answered to the best of my ability. This discharge took greater then 30 minutes in planning, reviewing documentation, counseling the patient, and discussing with other team members." ASSESSMENT ASSESSMENT Assessment PNA Visit Coding STANDARD RES Billing Provider: AMY BISHOP MD Date of Service if different f: May 10, 2025 Common Visit Codes: 19475-SYE/OBS DISCH DAY >30min GRADY BURGESS May 09, 2025 20:24
== END 2025-05-08 15:11 | disposition left against medical advice (07) | DRG 871 ==
LOC: ER 12:15 → OVERFLOW 05-08 02:14
PROVIDERS: ADMIT Internal Medicine; ATTEND Internal Medicine
DX: A41.50 Gram-negative sepsis, unspecified (principal); J15.69 Pneumonia due to other Gram-negative bacteria; J96.01 Acute respiratory failure with hypoxia; J15.9 Unspecified bacterial pneumonia; F17.200 Nicotine dependence, unspecified, uncomplicated; K59.01 Slow transit constipation; Z20.822 Contact with and (suspected) exposure to COVID-19; Z53.29 Procedure and treatment not carried out because of patient's decision for other reasons; Z90.710 Acquired absence of both cervix and uterus; Z85.43 Personal history of malignant neoplasm of ovary
CPT/HCPCS: 36415; 71045; 80048; 80053; 81001; 83605; 83615; 85025; 87040; 87426; 87804; 94640; G0378